=== PATIENT | female | born 1995 | race Caucasian/White ===

== ENCOUNTER 2019-03-01 19:35 | Emergency (ER) | payer OTHER ==
[~2019-03-01] VITALS: Ht 167.6 cm; Wt 81.6 kg
[2019-03-01 20:14] VITALS: BP_SYST 127
--- NOTE | 2019-03-01 20:15 | NUR ---
Pt to [facility]
--- NOTE | 2019-03-01 21:24 | NUR ---
BROUGHT BACK TO CHAIR IN [facility], REPORT GIVEN TO ELLIE
--- NOTE | 2019-03-01 21:24 | NUR ---
Pt c/o "wooshing" sound to Right ear x 3 months, progressively worsening. Pt states that she has been experiencing H/A and unable to sleep at night. Denies c/o H/A at this time.
--- NOTE | 2019-03-01 21:30 | NUR ---
Dr. Abdi assessing pt.
--- NOTE | 2019-03-01 22:30 | NUR ---
Pt to X-ray in stable condition.
--- NOTE | 2019-03-01 22:35 | NUR ---
Pt returns from X-ray. No needs verbalized at this time.
[2019-03-01 23:20] VITALS: BP_SYST 124
--- NOTE | 2019-03-01 23:20 | NUR ---
Patient given written and verbal discharge instructions and verbalizes understanding. ER MD discussed with patient the results and treatment provided. Patient in stable condition. ID arm band removed. Rx of Ibuprofen given. Patient educated on pain management and to follow up with PMD. Pain Scale 0/10. Opportunity for questions provided and answered. Medication side effect fact sheet provided.
== END 2019-03-01 23:20 | disposition home or self-care (01) ==
LOC: SED 19:35
DX: H93.19 Tinnitus, unspecified ear (principal)
CPT/HCPCS: 70360-TC; 70450-TC; 99284